=== PATIENT | female | born 1995 | race African-American/Black ===

== ENCOUNTER 2020-01-02 18:24 | Observation (INO) | payer OTHER, SELFPAY ==
[~2020-01-02 18:24] MED LIST: Dexamethasone 20 MG/5 ML VIAL ONE; Ondansetron PF 4 MG/2 ML Vial ONE; PHENYLEPHRINE-NS 100 MCG/ML 10 ML SYRINGE ONE; PROPOFOL 200 MG/20 ML VIAL ONE; Rocuronium Bromide 10 MG/ML (10ML VIAL) ONE; Succinylcholine Chloride 20 MG/ML 10 ml SYRINGE FS ONE; diphenhydrAMINE 50 MG/ML VIAL ONE
[2020-01-02] MEDS ORDERED: Lidocaine 1% w/Epinephrine 1:100K 20 ML VIAL ONE ×2 (19:20→21:37)
[2020-01-02] MEDS ORDERED: Bupivacaine PF 0.5% 30 ML VIAL ONE (19:20)
[2020-01-02] MEDS ORDERED: Midazolam HCl 2 mg/2 ml Vial ONE (19:21)
[2020-01-02] MEDS ORDERED: Fentanyl 250 MCG/5 ML VIAL ONE (19:21)
[2020-01-02] MEDS ORDERED: Albumin 5% 0 ML ONE (19:21)
[2020-01-02] MEDS ORDERED: Ketamine 50 MG/ML (10ML VIAL) ONE (19:21)
[2020-01-02 19:29] LABS: #Lymphocytes 0.7 thou/uL (1.20-3.40); #Monocytes 0.5 thou/uL (0.11-0.59); #Neutrophils 16.6 thou/uL (1.40-6.50); %Basophils 0.2 % (0.0-1.0); %Eosinophils 0.2 % (0.0-10.0); %Lymphocytes 3.6 % (21.0-51.0); %Monocytes 2.7 % (0.0-10.0); %Neutrophils 93.2 % (42.0-75.0); Hemoglobin 9.2 g/dL (12.0-16.0); Mean Corpuscular HGB CONC 33.2 g/dL (32.0-36.0); Mean Corpuscular Hemoglobin 30.6 pg (27.0-31.0); Mean Corpuscular Volume 92.3 fL (78.0-98.0); Mean Platelet Volume 9.3 fL (7.4-10.4); Platelet Count 196 thou/uL (130-400); RBC Distribution Width 13.9 % (11.5-14.5); Red Blood Cell (RBC) Count 3.01 mill/uL (4.20-5.40); White Blood Cell (WBC) Count 17.9 thou/uL (4.8-10.8)
[2020-01-02] MEDS ORDERED: SUGAMMADEX SODIUM 200 MG/2 ML VIAL ONE (21:25)
[2020-01-02] MEDS ORDERED: Ondansetron PF 4 MG/2 ML Vial IVP PRN (22:41)
[2020-01-02] MEDS ORDERED: hydrALAZINE 20 MG/ML VIAL SLOW IVP PRN (22:41)
[2020-01-02] MEDS ORDERED: traMADol HCl 50 MG TAB PO PRN ×2 (22:45)
[2020-01-02] MEDS ORDERED: Morphine 4 MG/ML VIAL SLOW IVP PRN (22:47)
[2020-01-02 23:21] LABS: Hemoglobin 8.8 g/dL (12.0-16.0)
[2020-01-02] MEDS: Lactated Ringer's 1,000 ML IV SCH (23:50)
[2020-01-03] MEDS: Ketorolac Tromethamine 30 MG/ML VIAL IVP SCH ×4 (00:35→19:26)
[2020-01-03 01:31] VITALS: BMI 53.0
--- NOTE | 2020-01-03 03:16 | OP ---
DATE OF PROCEDURE: 01/02/2020 PREOPERATIVE DIAGNOSIS: Ruptured ectopic . POSTOPERATIVE DIAGNOSIS: Ruptured ectopic . PROCEDURE: Diagnostic laparoscopy with left partial salpingectomy and evacuation of hemoperitoneum. ANESTHESIA: General. QUANTITATIVE BLOOD LOSS: 1500 mL with approximately 100 mL blood loss intraoperatively. COUNTS: Correct. COMPLICATIONS: None. CONDITION: Stable to recovery room. FINDINGS: Hemoperitoneum of approximately 1500 mL. Left-sided ruptured tubal ectopic . Right tube and ovary appeared to be normal. Left ovary appears normal and healthy. There is a normal smooth liver edge. No adhesive disease visible. DESCRIPTION OF PROCEDURE: Ms. Zoila Bentley is a 24-year-old female presenting to the emergency room with acute onset abdominal pain and was diagnosed with a suspected ectopic with some hemodynamic instability as requiring fluid boluses to maintain blood pressure and to maintain a less tachycardic pulse. The patient was counseled to her overall situation and concerns and provided informed written consent. She was taken to the operating room where she was placed under general anesthesia without difficulty. She was placed in dorsal lithotomy position in [facility]. She was prepared and draped in normal sterile fashion. Attention was placed vaginally where with the aid of an operative speculum, the cervix was identified, grasped with a single-tooth tenaculum, and a Everstringlka uterine manipulator was then inserted through the cervical os. Once this was completed, the speculum was removed and attention was placed abdominally. A 5 mm skin incision was made in the base of the umbilicus. Attempts were made to insufflate the abdomen prior to trocar placement, but there was concern that we were not getting proper placement of the Veress needle due to the habitus of the patient as she is morbidly obese. A 5 mm scope was then placed under direct visualization into the peritoneal cavity. Abdomen was then insufflated to 15 mmHg. Immediately upon entry, the patient was noted to have a hemoperitoneum, much of this blood was evacuated until the uterus could be elevated and the tubes inspected. The patient was noted to have a left ruptured ectopic tubal . An 11 mm skin incision was made in the suprapubic region at midline and an 11 mm port with trocar was then inserted under direct visualization. A third trocar was placed in the left lateral, 5 mm, again also under direct visualization. With the aid of a laparoscopic grasper and the LigaSure device, the tube was elevated and the tubal segment containing the ectopic was then transected out. This segment with was then removed with the aid of an EndoCatch bag. Inspection of the surgical site showed good hemostasis. At this point, the bleeding was under control and the rest of the blood was then evacuated to the best of our ability. There was approximately 1500 mL removed. The pelvis was irrigated and inspected. Good hemostasis again was noted. The right tube and ovary appeared to be normal. The left tube appeared normal. There was a smooth liver edge and abdomen otherwise appeared normal. With the procedure completed, the abdomen was then deflated and the ports and trocars were removed. On digital inspection, the suprapubic site had an approximately 1 cm fascial defect, and given the thickness of the subcutaneous fat, decision was made to not suture it closed given it was 1 cm size. The subcutaneous fat was then closed with 4-0 Monocryl and then closure of the skin with the same suture. Attention was placed to sites which were also closed with 4-0 Monocryl. Approximately 30 mL of 1% lidocaine with epinephrine was then injected into these three sites. The single-tooth tenaculum and the uterine manipulator were then removed vaginally. Inspection of the cervix with the operative speculum showed good hemostasis. The procedure at this time was completed. The patient was taken out of lithotomy position, extubated, and taken to recovery room in stable condition. Job ID: [id number]
[2020-01-03 06:42] LABS: Hemoglobin 7.7 g/dL (12.0-16.0); Mean Corpuscular HGB CONC 34.4 g/dL (32.0-36.0); Mean Platelet Volume 7.7 fL (7.4-10.4); Platelet Count 224 thou/uL (130-400); RBC Distribution Width 13.9 % (11.5-14.5); Red Blood Cell (RBC) Count 2.39 mill/uL (4.20-5.40); White Blood Cell (WBC) Count 12.9 thou/uL (4.8-10.8)
--- NOTE | 2020-01-03 08:25 | DIS ---
DATE OF ADMISSION: 01/02/2020 DATE OF DISCHARGE: 01/03/2020 ADMITTING DIAGNOSES: 1. Left ruptured tubal ectopic. 2. Hemoperitoneum. 3. Acute blood loss anemia. DISCHARGE DIAGNOSES: 1. Left ruptured tubal ectopic. 2. Hemoperitoneum. 3. Acute blood loss anemia. PROCEDURES: Diagnostic laparoscopy with partial left salpingectomy and evacuation of hemoperitoneum. CONSULTATIONS: None. HOSPITAL COURSE: The patient is a 24-year-old female, presenting to the emergency room with acute onset abdominal pain. She is diagnosed with a suspected ruptured ectopic with some hemodynamic instability and was taken to the operating room for evaluation. There, it was confirmed a ruptured ectopic with approximately 1500 mL of blood in her peritoneal cavity. For complete details of her operation, please refer to her operative note. She was brought in for observation due to the extensive blood loss to monitor for signs of severe anemia and possible need for blood transfusion. Overnight, the patient reports that she slept well and that she feels a little bit short of breath and weak, but has been able to get up to go to bathroom without difficulty. She reports blood pressure is under good control and she reports pain is under good control. She is ambulating, tolerating a diet. Her hemoglobin this morning approximately 68 hours after surgery is 7.7, down from 11.1 at its highest documentation, hematocrit 22.2, and platelets of 224,000. The patient is being discharged home. She has ibuprofen and tramadol for pain control. She has instructions to follow up at [facility] [place] in 2 weeks for an incision check. She also has been counseled to seek medical attention sooner if she experiences fever, increasing pain, bleeding, redness, or drainage from her incision sites. The patient has not been up to walk to halls yet. She has been advised to do so prior to discharge to confirm that she can ambulate without much difficulty. Job ID: [id number]
[2020-01-03] MEDS: Lactated Ringer's 1,000 ML IV SCH ×2 (10:37→16:22)
[2020-01-03 20:58] VITALS: BP 119/72; TEMP 98.7
--- NOTE | 2020-01-13 15:50 | EKG ---
Test Reason : Blood Pressure : / mmHG Vent. Rate : 106 BPM Atrial Rate : 106 BPM P-R Int : 130 ms QRS Dur : 080 ms QT Int : 338 ms P-R-T Axes : 080 056 050 degrees QTc Int : 448 ms Sinus tachycardia Otherwise normal ECG Confirmed by YVETTE SORTO ([id number]), movie editor OSEI BROOKE ([id number]) on 01/13/2020 3:50:20 PM Referred By: Confirmed By:YVETTE Rosales
== END 2020-01-03 20:39 | disposition home or self-care (01) ==
LOC: ERS 18:24 → SDC 19:06 → 3SW 22:41 → SDC 22:41 → 3SW 22:45
PROVIDERS: ADMIT Obstetrics & Gynecology; ATTEND Obstetrics & Gynecology
PROC: 10T24ZZ Resection of Products of Conception, Ectopic, Percutaneous Endoscopic Approach (ICD-10-PCS; principal; 2020-01-02)
PROC: 0UT64ZZ Resection of Left Fallopian Tube, Percutaneous Endoscopic Approach (ICD-10-PCS; 2020-01-02)
DX: O00.102 Left tubal pregnancy without intrauterine pregnancy (principal); K66.1 Hemoperitoneum; D62 Acute posthemorrhagic anemia
CPT/HCPCS: 36415; 85025; 85027; 86850; 86900; 86901; 88305; 93005; 96361; 96374; G0378; J1100; J1200; J1885; J2250; J2405; J2704; J3010; P9045; S0020

== ENCOUNTER 2020-09-18 22:15 | Emergency (ER) | payer OTHER | END 2020-09-18 23:03 | disposition home or self-care (01) | LOC: ERS 22:15 | DX: M25.561 Pain in right knee (principal) | CPT/HCPCS: 99281 ==